=== PATIENT | male | born 1980 | race Caucasian/White ===

== ENCOUNTER → 2016-04-03 | Outpatient (CLI) | payer OTHER ==
--- NOTE | 2016-04-03 10:42 | Diagnostic Imaging Report ---
INDICATION: Right hip pain. FINDINGS: Two views of the right hip show deformity with flattening of the femoral head and large osteophytes at the margins of the articular surfaces. The joint space is completely obliterated superiorly and there is cystic change in the opposing bony surfaces. IMPRESSION: Advanced degenerative changes of the right hip. There is no fracture or dislocation. Dictated by: Dictated on workstation # [id number]
--- NOTE | 2016-04-03 15:12 | Diagnostic Imaging Report ---
Bilateral hip pain. EXAMINATION: Left hip 04/03/2016. COMPARISON: None. FINDINGS: Two views of the left hip demonstrate flattening of the femoral head which appears chronic with no acute fracture or dislocation appreciated. There are large loose bodies inferior to the femoral neck. Sclerosis and narrowing within the hip joint is noted with spurring along the femoral head. IMPRESSION: 1. 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 No acute process. Dictated by: Dictated on workstation # [id number]
== END ==
LOC: RAD 09:54
PROVIDERS: ATTEND Surgery
DX: Z02.71 Encounter for disability determination (principal)
CPT/HCPCS: 73502